=== PATIENT | female | born 1960 | race Hispanic/Latino ===

== ENCOUNTER 2021-12-11 23:36 | Inpatient (IN) | payer BC ==
[~2021-12-11] VITALS: Ht 162.6 cm; Wt 137.3 kg
[2021-12-12 00:26] LABS: BASOPHILS % (AUTO) 0.8 % (0.0-5.0); EOSINOPHILS % (AUTO) 5.5 % (0.0-8.0); HEMATOCRIT 47.4 % (36-48); LYMPHOCYTES % (AUTO) 22.7 % (21.0-51.0); MEAN CORPUSCULAR HEMOGLOBIN 31.8 pg (27.0-33.0); MEAN CORPUSCULAR HGB CONC 32.7 g/dL (32.0-36.0); MEAN CORPUSCULAR VOLUME 97.3 fL (79-99); MONOCYTES % (AUTO) 8.4 % (3.0-13.0); NEUTROPHILS % (AUTO) 62.2 % (40.0-77.0); PLATELET COUNT (AUTO) 174 K/uL (130-400); RED BLOOD CELL COUNT(AUTO) 4.87 MIL/uL (4.00-5.50); RED CELL DISTRIBUTION WIDTH 13.3 % (11.0-15.5); WHITE BLOOD COUNT (AUTO) 7.7 K/uL (4.8-10.8)
[2021-12-12] MEDS ORDERED: ZOSYN 3.375GM +NS 50ML IV ONE (00:30)
[2021-12-12] MEDS ORDERED: 0.9%NACL 1000ML 1,641 ML IV ONE (00:30)
[2021-12-12 00:36] LABS: CREATININE 0.9 mg/dL (0.5-1.5); POTASSIUM 4.4 mmol/L (3.5-5.1)
[2021-12-12 00:49] LABS: ALBUMIN 3.5 g/dL (3.5-5.0); BILIRUBIN,TOTAL 0.4 mg/dL (0.2-1.0); THYROID STIMULATING HORMONE 3.72 uIU/mL (0.36-3.74); TOTAL PROTEIN, SERUM 7.5 g/dL (6.0-8.3)
[2021-12-12] MEDS ORDERED: IOHEXOL-350 75 ML VIAL IV ONE (01:19)
[2021-12-12 01:21] LABS: APPEARANCE,URINE Clear (CLEAR); BILIRUBIN,URINE Negative (NEGATIVE); COLOR,URINE Yellow (YELLOW); GLUCOSE, URINE (UA) Negative (NEGATIVE); KETONES,URINE Negative (NEGATIVE); LEUKOCYTE ESTERASE ,URINE Negative (NEGATIVE); NITRATE,URINE Negative (NEGATIVE); OCCULT BLOOD,URINE Negative (NEGATIVE); PROTEIN,URINE Negative (NEGATIVE); UROBILINOGEN,URINE 0.2 mg/dL (0.2-1.0)
[2021-12-12] MEDS ORDERED: ONDANSETRON 4MG INJ IV PRN (04:30)
[2021-12-12] MEDS ORDERED: MAG/ALUM/SIMETH 30 ML UDCUP PO PRN (04:30)
[2021-12-12] MEDS ORDERED: LACTULOSE 20 GM/30 ML UDCUP PO PRN (04:30)
[2021-12-12] MEDS ORDERED: ZOLPIDEM TARTRATE 5 MG TAB PO PRN (04:30)
[2021-12-12] MEDS ORDERED: GUAIFENESIN-DM 200/20 MG 10 ML PO PRN (04:30)
[2021-12-12] MEDS ORDERED: MORPHINE 2 MG SYG IV PRN (04:30)
[2021-12-12] MEDS ORDERED: NITROGLYCERIN 0.4 MG SL TAB SL PRN (04:30)
[2021-12-12] MEDS ORDERED: KCL 20 MEQ ERTAB PO PRN (05:00)
[2021-12-12] MEDS ORDERED: MAGNESIUM 2GM PREMIX 50ML 50 ML IV PRN (05:00)
[2021-12-12] MEDS ORDERED: POTASSIUM CHLORIDE 20MEQ/100ML 100 ML IV PRN (05:00)
[2021-12-12] MEDS ORDERED: DEXTROSE 50%-WATER 50 ML DISP.SYRIN IV PRN (05:00)
[2021-12-12] MEDS ORDERED: POTASSIUM CHLORIDE 10% ELIXIR 20 MEQ/15 ML UDCUP PO PRN (05:00)
[2021-12-12] MEDS ORDERED: GLUCAGON 1MG KIT 1 MG ML IM PRN (05:00)
[2021-12-12 05:45] VITALS: BP 137/62
[2021-12-12] MEDS ORDERED: LEVO125C4 PO (05:58)
[2021-12-12] MEDS: INSULIN HUMULIN R 100 UNIT/ML 3ML SQ SCH ×4 (06:31→21:00)
[2021-12-12 07:10] VITALS: BP 122/53
[2021-12-12 11:10] VITALS: BP 143/75
[2021-12-12] MEDS: ZOSYN 3.375GM+NS 50ML 50 ML IV SCH ×3 (11:11→22:40)
[2021-12-12] MEDS: FAMOTIDINE 20MG VIAL IV SCH (11:12)
[2021-12-12] MEDS: ENOXAPARIN SODIUM 40 MG/0.4 ML SYRINGE SQ SCH (11:12)
[2021-12-12] MEDS ORDERED: VANCOMYCIN PROTOCOL PER PHARMACY IV SCH (12:30)
[2021-12-12] MEDS ORDERED: SODIUM CHLORIDE IV ONE ×2 (12:30)
[2021-12-12] MEDS ORDERED: COMPOUND IV REFRIGERATED 1 EACH IVSOLN MISC PRN (12:30)
[2021-12-12] MEDS ORDERED: VANCOMYCIN IV ONE ×2 (12:30)
[2021-12-12 15:10] VITALS: BP 138/61
[2021-12-12] MEDS ORDERED: DiphenhydrAMINE HCL 50 MG/ML VIAL IV ONE (17:00)
[2021-12-12 20:19] VITALS: BP 160/75
[2021-12-12] MEDS: ZYVOX 600 MG TAB PO SCH (22:40)
[2021-12-12 23:58] VITALS: BP 137/75
[2021-12-13] VITALS (7 sets, daily range): BP systolic 118–169; BP diastolic 57–73
[2021-12-13] MEDS ORDERED: VANCOMYCIN 750MG VIAL IVPB SCH (00:30)
[2021-12-13] MEDS ORDERED: 0.9% NACL 250ML 250 ML IV SCH (00:30)
[2021-12-13 04:26] LABS: BASOPHILS % (AUTO) 0.5 % (0.0-5.0); EOSINOPHILS % (AUTO) 2.6 % (0.0-8.0); HEMATOCRIT 43.5 % (36-48); LYMPHOCYTES % (AUTO) 19.8 % (21.0-51.0); MEAN CORPUSCULAR HEMOGLOBIN 30.7 pg (27.0-33.0); MEAN CORPUSCULAR HGB CONC 32.4 g/dL (32.0-36.0); MEAN CORPUSCULAR VOLUME 94.6 fL (79-99); MONOCYTES % (AUTO) 8.7 % (3.0-13.0); NEUTROPHILS % (AUTO) 68.1 % (40.0-77.0); PLATELET COUNT (AUTO) 152 K/uL (130-400); RED CELL DISTRIBUTION WIDTH 13.2 % (11.0-15.5); WHITE BLOOD COUNT (AUTO) 5.8 K/uL (4.8-10.8)
[2021-12-13 04:40] LABS: ALBUMIN 3.1 g/dL (3.5-5.0); BILIRUBIN,TOTAL 0.9 mg/dL (0.2-1.0); CREATININE 0.9 mg/dL (0.5-1.5); MAGNESIUM 2.2 mg/dL (1.80-2.40); PHOSPHORUS 3.7 mg/dL (2.5-4.9); POTASSIUM 4.1 mmol/L (3.5-5.1); TOTAL PROTEIN, SERUM 6.4 g/dL (6.0-8.3)
[2021-12-13] MEDS: ZOSYN 3.375GM+NS 50ML 50 ML IV SCH ×3 (05:44→21:08)
[2021-12-13] MEDS: INSULIN HUMULIN R 100 UNIT/ML 3ML SQ SCH ×4 (05:52→21:00)
[2021-12-13] MEDS ORDERED: IOHEXOL-350 75 ML VIAL IV ONE (07:31)
[2021-12-13] MEDS: ZYVOX 600 MG TAB PO SCH ×2 (09:47→21:08)
[2021-12-13] MEDS: FAMOTIDINE 20MG VIAL IV SCH (09:47)
[2021-12-13] MEDS: ENOXAPARIN SODIUM 40 MG/0.4 ML SYRINGE SQ SCH (09:49)
[2021-12-14 00:23] VITALS: BP 145/64
[2021-12-14 05:09] LABS: BASOPHILS % (AUTO) 0.7 % (0.0-5.0); EOSINOPHILS % (AUTO) 6.6 % (0.0-8.0); HEMATOCRIT 44.7 % (36-48); LYMPHOCYTES % (AUTO) 28.9 % (21.0-51.0); MEAN CORPUSCULAR HEMOGLOBIN 30.4 pg (27.0-33.0); MEAN CORPUSCULAR HGB CONC 32.7 g/dL (32.0-36.0); MEAN CORPUSCULAR VOLUME 92.9 fL (79-99); MONOCYTES % (AUTO) 9.1 % (3.0-13.0); NEUTROPHILS % (AUTO) 54.4 % (40.0-77.0); PLATELET COUNT (AUTO) 160 K/uL (130-400); RED BLOOD CELL COUNT(AUTO) 4.81 MIL/uL (4.00-5.50); RED CELL DISTRIBUTION WIDTH 13.1 % (11.0-15.5); WHITE BLOOD COUNT (AUTO) 5.7 K/uL (4.8-10.8)
[2021-12-14] MEDS: ZOSYN 3.375GM+NS 50ML 50 ML IV SCH ×2 (05:56→13:05)
[2021-12-14 06:04] LABS: ALBUMIN 3.3 g/dL (3.5-5.0); CREATININE 0.9 mg/dL (0.5-1.5); PHOSPHORUS 3.6 mg/dL (2.5-4.9); POTASSIUM 3.9 mmol/L (3.5-5.1)
[2021-12-14 06:06] LABS: BILIRUBIN,TOTAL 0.8 mg/dL (0.2-1.0); TOTAL PROTEIN, SERUM 6.9 g/dL (6.0-8.3)
[2021-12-14 06:21] VITALS: BP 148/65
[2021-12-14 06:26] LABS: MAGNESIUM 1.9 mg/dL (1.80-2.40)
[2021-12-14] MEDS: INSULIN HUMULIN R 100 UNIT/ML 3ML SQ SCH ×3 (06:59→16:30)
[2021-12-14 07:15] VITALS: BP 151/71
[2021-12-14] MEDS: FAMOTIDINE 20MG VIAL IV SCH (08:17)
[2021-12-14] MEDS: ZYVOX 600 MG TAB PO SCH (08:17)
[2021-12-14] MEDS: ENOXAPARIN SODIUM 40 MG/0.4 ML SYRINGE SQ SCH (08:19)
[2021-12-14 11:15] VITALS: BP 133/64
[2021-12-14 15:15] VITALS: BP 132/56
[2021-12-14] MEDS ORDERED: QUETIAPINE FUMARATE 25 MG TAB PO SCH (21:00)
== END 2021-12-14 18:15 | disposition home or self-care (01) | DRG 603 ==
LOC: EDH 23:36 → OBSVTOIN 12-12 04:25 → EDHIP 12-12 04:25 → 3AH 12-12 05:27
PROVIDERS: ADMIT Internal Medicine Critical Care Medicine; ATTEND Internal Medicine Critical Care Medicine
DX: L03.211 Cellulitis of face (principal); L02.01 Cutaneous abscess of face; Z68.43 Body mass index [BMI] 50.0-59.9, adult; E66.01 Morbid (severe) obesity due to excess calories; E89.0 Postprocedural hypothyroidism; K11.20 Sialoadenitis, unspecified; M27.2 Inflammatory conditions of jaws; N28.1 Cyst of kidney, acquired; Z88.1 Allergy status to other antibiotic agents; Z20.822 Contact with and (suspected) exposure to COVID-19; R51.9 Headache, unspecified; E11.9 Type 2 diabetes mellitus without complications; I10 Essential (primary) hypertension; Z88.6 Allergy status to analgesic agent
CPT/HCPCS: 36415; 70486; 71045; 71275; 74177; 80053; 80202; 81003; 82948; 83605; 83690; 83735; 84100; 84145; 84443; 84484; 85025; 87040; 87088; 87635; 87804; C9803; G0378; J1200; J1650; J2405; J2543; J3370; J3490; J7030; J7040; Q9967